=== PATIENT | female | born 1970 | race Caucasian/White ===

== ENCOUNTER 2018-02-26 18:37 | Emergency (ER) | payer OTHER ==
[~2018-02-26] VITALS: Ht 162.6 cm; Wt 77.1 kg
[~2018-02-26 18:37] MED LIST: CIPRO500 MG PO; CIPROFLOXACIN250 M2 PO; IRON325 PO; PHENAZOPYRIDIN200 M2 PO; PRENATAL; ROBAXIN 750 MG750 M1 PO; VICOPROFEN 2001 EACH PO
[2018-02-26] MEDS ORDERED: AFRIN30 ML NASAL (20:15)
[2018-02-26] MEDS ORDERED: UNICOMPLEX M TA1 TA1 PO (20:15)
[2018-02-26] MEDS ORDERED: PREDNISONE 20 M20 MG PO (20:15)
[2018-02-26 20:31] VITALS: BP 120/72
== END 2018-02-26 20:31 | disposition home or self-care (01) ==
LOC: ER 18:37
DX: J06.9 Acute upper respiratory infection, unspecified (principal); J32.9 Chronic sinusitis, unspecified; G44.209 Tension-type headache, unspecified, not intractable